=== PATIENT | male | born 1975 | race Two or more races ===

== ENCOUNTER 2022-04-17 21:39 | Emergency (ER) | payer OTHER ==
[2022-04-17] MEDS ORDERED: lidocaine 1% 20 ML MDV SUBQ ONE (22:46)
[2022-04-17] MEDS ORDERED: BUPIVACAINE 0.5% PF 10 ML VIAL SUBQ STA (22:46)
--- NOTE | 2022-04-17 23:26 | XRAY Report ---
PROCEDURE: Hand 3 View LT INDICATIONS: ring fingertip crush TECHNIQUE: 3 views of the left hand acquired. COMPARISON: None. FINDINGS: Bones: There is a mildly comminuted fracture of fourth distal phalanx. No dislocations. No suspiciou s bony lesions. Soft tissues: There is soft tissue swelling of the fourth digit distally. No suspicious soft tissue calcifications. IMPRESSION: 1. Mildly comminuted fracture of the fourth distal phalanx. Reviewed by: Aj Armendariz MD on 04/17/2022 11:25 PM PDT Approved by: Aj Armendariz MD on 04/17/2022 11:25 PM PDT Station ID: [id number]
[2022-04-17] MEDS ORDERED: TETANUS/DIPHTHERIA/PERTUSSIS 0.5 ML SYRINGE IM ONE (23:46)
[2022-04-17] MEDS ORDERED: AMOX/CLAV 875 MG/125 MG TABLET PO STA (23:46)
--- NOTE | 2022-04-17 23:46 | ED Physician Documentation ---
PD HPI UPPER EXT INJURY - Stated complaint Stated Complaint: L RING FINGER INJ - Chief complaint Chief Complaint: Laceration - History obtained from History obtained from: Patient, Friend - History of Present Illness Location: Left, Finger (ring) Type of injury: Blunt / blow Where injury occurred: Home Timing - onset: Today Timing - duration: Hours Timing - details: Abrupt onset, Still present Improved by: Rest, Immobilization, Dressing Worsened by: Moving, Palpating Contributing factors: No: Anticoagulated, Prior ortho surgery Similar symptoms before: Has not had sx before Recently seen: Not recently seen - Additonal information Additional information: 46-year-old Jaciel Duncan was with a friend today when he let down the gait tailgate of his truck and struck his finger against the trailer joselin. He has a laceration to the fingertip of the left ring finger. It does involve the nail. He does not know his last tetanus. Review of Systems Constitutional: denies: Fever Respiratory: denies: Cough GI: denies: Vomiting, Diarrhea Skin: reports: Laceration (s) PD PAST MEDICAL HISTORY - Past Medical History Past Medical History: No Cardiovascular: None Respiratory: None Neuro: None Endocrine/Autoimmune: None GI: None : None HEENT: None Psych: None Musculoskeletal: None Derm: None - Past Surgical History Past Surgical History: No - Present Medications Home Medications: Ambulatory Orders Medication Instructions Recorded Confirmed Amox/Clav 875/125 [Augmentin] 1 each PO Q12H #10 tablet 04/17/22 - Allergies Allergies/Adverse Reactions: Allergies Allergy/AdvReac Type Severity Reaction Status Date / Time No Known Drug Allergies Allergy Verified 04/17/22 22:02 - Social History Does the pt smoke?: Yes Smoking Status: Current every day smoker Does the pt drink ETOH?: Yes Does the pt have substance abuse?: No - Immunizations Immunizations are current?: No - POLST Patient has POLST: No PD ED PE NORMAL - Vitals Vital signs reviewed: Yes - General General: Alert and oriented X 3, No acute distress, Well developed/nourished - HEENT HEENT: Atraumatic, PERRL, EOMI - Respiratory Respiratory: No respiratory distress - Derm Derm: Normal color, Warm and dry, No rash - Extremities Extremities: Other (Left ring fingertip has a laceration to the ulnar surface that involves three quarters of the fingertip. It involves the last 3 mm of the nail as well. There is no obvious foreign material in the wound.) - Neuro Neuro: Alert and oriented X 3, gift consultant 2-12 intact, No motor deficit, No sensory deficit, Normal speech Eye Opening: Spontaneous Motor: Obeys Commands Verbal: Oriented GCS Score: 15 - Psych Psych: Normal mood, Normal affect Results - Vitals Vitals: Vital Signs - 24 hr 04/17/22 04/17/22 04/17/22 21:59 22:04 22:51 Temperature 36.4 C L Heart Rate 75 Respiratory 17 17 16 Rate Blood Pressure 121/72 O2 Saturation 99 Oxygen O2 Source Room air - Rads (name of study) Left hand Radiology: Prelim report reviewed (Impression: 1. Mildly comminuted fracture of the fourth distal phalanx.), EMP read indepedently, See rad report Procedures - Laceration (location) Left ring finger Wound type: Linear, Flap, Clean, Exposure of bone Neurovascular status: Sensory intact, Motor intact, Vascular intact Anesthesia: Lidocaine 1%, Volume - enter ml (6), Other (Digital block) Wound preparation: Hibiclens, Irrigated copiously NS, Wound explored, To the base Skin layer closure: Nylon, Interrupted, Size #-0 - enter number (5-0), Sutures - enter # (7) Other: Patient tolerated well, No complications, Neurovascular intact, Dressing applied, Tetanus booster given PD MEDICAL DECISION MAKING - ED course Complexity details: reviewed results, re-evaluated patient, considered differential, d/w patient, d/w family ED course: 46-year-old male with a laceration of the ring finger tip on the left hand has comminuted fracture of the distal phalanx and involvement of the nail. The wound is cleansed and reapproximated a portion of the nail is trimmed and the wound is sutured dressed and placed into a splint. The patient is administered Augmentin 875 orally. Departure - Departure Disposition: 01 Home, Self Care Clinical Impression: Laceration of finger of left hand Qualifiers: Encounter type: initial encounter Finger: ring finger Damage to nail status: with damage Foreign body presence: without foreign body Qualified Code(s): S61.315A - Laceration without foreign body of left ring finger with damage to nail, initial encounter Finger fracture, left Qualifiers: Encounter type: initial encounter Finger: ring finger Fracture type: open Phalanx: distal Fracture alignment: nondisplaced Qualified Code(s): S62.665B - Nondisplaced fracture of distal phalanx of left ring finger, initial encounter for open fracture Condition: Stable Instructions: ED Fx Finger Open, ED Laceration Hand Follow-Up: [facility] [place] [Provider Group] Prescriptions: Amox/Clav 875/125 [Augmentin] 1 each PO Q12H #10 tablet Comments: Jaciel today it looks like you have lacerated the tip of your finger and there is a fracture to the fingertip bone. The sutures will need to be removed in about 10 days and we have E scribed some Augmentin to the [facility] in [place]. Take the antibiotic twice per day. If you develop some swelling in redness and drainage from the fingertip follow-up either here, the urgent care or if you are traveling the nearest emergency department. An infection to the fingertip is something we are trying to prevent.
[2022-04-17 23:56] VITALS: BP 125/90
== END 2022-04-18 00:17 | disposition home or self-care (01) ==
LOC: ED 21:39
DX: S62.635B Displaced fracture of distal phalanx of left ring finger, initial encounter for open fracture (principal); W22.09XA Striking against other stationary object, initial encounter; Y93.89 Activity, other specified; Y92.009 Unspecified place in unspecified non-institutional (private) residence as the place of occurrence of the external cause; F17.200 Nicotine dependence, unspecified, uncomplicated
CPT/HCPCS: 13132; 73130; 90471; 90715; 99283; A9270